=== PATIENT | female | born 1940 | race Caucasian/White ===

== ENCOUNTER 2021-02-28 10:29 | Inpatient (IN) ==
[2021-02-28] MEDS ORDERED: dexAMETHasone 6 MG in SYRINGE 0 ML IV ONE (11:04)
--- NOTE | 2021-02-28 11:12 | Emergency Department Note ---
History of Present Illness General Chief complaint: Diarrhea Stated complaint: DIARRHEA,NAUSEA Time Seen by Provider: 02/28/21 10:58 History of Present Illness Provider complaint: Diarrhea cough weakness shortness of breath fever Onset (ago): week(s) 1 Maximum Pain Intensity: 5 Associated symptoms: + cough, + fever/chills, + malaise, + nausea/vomiting, + shortness of breath and + weakness 80-year-old female presents emergency department for diarrhea, cough,, weakness, cough shortness of breath, fever, for the last week. Patient states that she had family over from [place] on and after they left they tested positive for COVID-19. Patient states her symptoms began 1 week ago. Patient denies any hemoptysis. She does not smoke. No exogenous hormone usage. Patient states she was not vaccinated against COVID-19. Home Medications Medication Instructions Recorded Confirmed Type Tonic Water 1 dose PO UD 04/19/19 05/13/19 History magnesium 250 mg tablet 500 mg PO DAILY 04/19/19 05/13/19 History Allergies Allergy/AdvReac Type Severity Reaction Status Date / Time morphine AdvReac Unknown N/V Verified 04/19/19 11:14 Past Med/Surg History Medical History (Updated 02/28/21 @ 13:07 by Conor Guardado) History of fracture back, hip d/t trauma s/p left hip surgery, back surgery was managed conserva tively with brace/no surgical intervention (2001) Sciatica Surgical History History of colonoscopy History of hip surgery left Social History Smoking Status: Never smoker Hx Alcohol Use: No Hx Substance Use: No Preferred Language: Kuwaiti Communication Ability: Effective Retail Clerk Required: No Beliefs That Will Affect Care: None Current Living Situation: Alone Feels Safe at Home: Yes Assistive Devices: Denture - Lower and Wheelchair Review of Systems A total of 10 systems reviewed and were otherwise negative Physical Exam Vital Signs Vital Signs - 24 hr 02/28/21 10:44 02/28/21 10:59 02/28/21 11:29 Temperature 37.6 C H Temperature Source Temporal Artery Scan Pulse Rate 85 88 Pulse Rate from SpO2 Sensor Pulse Rhythm Regular Respiratory Rate 18 20 20 Respiratory Effort / Characteristics Non-Labored Non-Labored Blood Pressure 101/62 Blood Pressure Mean 75 Blood Pressure Position Sitting Pulse Oximetry 88 L 96 98 Oxygen Delivery Method Room Air Nasal Cannula Nasal Cannula Oxygen Flow Rate 2 Sepsis Recent Fever Within 48 Hours No Sepsis New/Unexplained Change in Mental Status N/A Sepsis Action Taken by Nursing No Action Required 02/28/21 11:32 02/28/21 11:40 02/28/21 11:50 Temperature Temperature Source Pulse Rate 74 77 76 Pulse Rate from SpO2 Sensor 75 77 78 Pulse Rhythm Respiratory Rate 21 16 19 Respiratory Effort / Characteristics Blood Pressure 132/65 Blood Pressure Mean 87 Blood Pressure Position Pulse Oximetry 96 98 97 Oxygen Delivery Method Nasal Cannula Oxygen Flow Rate 2 Sepsis Recent Fever Within 48 Hours Sepsis New/Unexplained Change in Mental Status Sepsis Action Taken by Nursing 02/28/21 11:59 02/28/21 12:00 02/28/21 12:10 Temperature Temperature Source Pulse Rate 78 74 Pulse Rate from SpO2 Sensor 78 74 Pulse Rhythm Respiratory Rate 20 25 H 15 Respiratory Effort / Characteristics Non-Labored Non-Labored Blood Pressure Blood Pressure Mean Blood Pressure Position Pulse Oximetry 96 97 97 Oxygen Delivery Method Nasal Cannula Nasal Cannula Nasal Cannula Oxygen Flow Rate 2 2 2 Sepsis Recent Fever Within 48 Hours Sepsis New/Unexplained Change in Mental Status Sepsis Action Taken by Nursing 02/28/21 12:28 02/28/21 12:30 02/28/21 12:40 Temperature Temperature Source Pulse Rate Pulse Rate from SpO2 Sensor 83 79 73 Pulse Rhythm Respiratory Rate 20 Respiratory Effort / Characteristics Non-Labored Blood Pressure 151/73 H Blood Pressure Mean 99 Blood Pressure Position Pulse Oximetry 93 95 97 Oxygen Delivery Method Nasal Cannula Nasal Cannula Nasal Cannula Oxygen Flow Rate 2 2 2 Sepsis Recent Fever Within 48 Hours Sepsis New/Unexplained Change in Mental Status Sepsis Action Taken by Nursing 02/28/21 12:50 02/28/21 13:00 Temperature Temperature Source Pulse Rate Pulse Rate from SpO2 Sensor 76 75 Pulse Rhythm Respiratory Rate 20 Respiratory Effort / Characteristics Non-Labored Blood Pressure 151/72 H Blood Pressure Mean 98 Blood Pressure Position Pulse Oximetry 94 97 Oxygen Delivery Method Nasal Cannula Oxygen Flow Rate 2 Sepsis Recent Fever Within 48 Hours Sepsis New/Unexplained Change in Mental Status Sepsis Action Taken by Nursing Physical Exam GENERAL: She is oriented to person, place, and time. She appears well-developed and well-nourished. She does not appear distressed. HENT: Exam performed. -Head: Normocephalic and atraumatic. -Right Ear: External ear normal. No mastoid tenderness. -Left Ear: External ear normal. No mastoid tenderness. -Mouth/Throat: The oropharynx is clear and moist. No trismus in the jaw. No dental abscesses or uvula swelling. No oropharyngeal exudate or tonsillar abscesses. EYES: Conjunctivae and EOM are normal. Pupils are equal, round, and reactive to light. Right eye exhibits no discharge. Left eye exhibits no discharge. No scleral icterus. NECK: Normal range of motion. Neck supple. No JVD present. No spinous process tenderness present. No carotid bruit present. No rigidity. No tracheal deviation and normal range of motion present. No Brudzinski's sign and no Kernig's sign noted. CV: Normal rate, regular rhythm, normal heart sounds and intact distal pulses. There is no peripheral edema. Palpable radial pulses bue. PULM/CHEST: Diminished breath sounds bilaterally and rhonchi bilaterally. -Chest Wall: She exhibits no tenderness. ABD: The abdomen is soft. Bowel sounds are normal. She has no distension. No mass is present. There is no tenderness. There is no rebound, no guarding, no Pavon's sign and no tenderness at McBurney's point. Rovsig negative MUSC/SKEL: Normal range of motion. There is no peripheral edema, tenderness or deformity. LYMPH: No cervical adenopathy. NEURO: She is alert and oriented to person, place, and time. She has normal strength. No cranial nerve deficit or sensory deficit. Coordination and gait normal. GCS eye subscore is 4. GCS verbal subscore is 5. GCS motor subscore is 6. Cerebellar tests wnl. SKIN: Skin is warm and dry. She is not diaphoretic. PSYCH: She has a normal mood and affect. Behavior is normal. Judgment and thought content normal. Course Course 1058: The patient was evaluated in room B11. A complete history and physical exam was performed Cardiac monitoring: An order was placed for continuous cardiac monitoring. The monitor shows a rate of 90 with sinus rhythm 1305: Vital signs stable on supplemental oxygen via nasal cannula. Imaging shows bilateral groundglass opacities, no pulmonary embolus. Labs within normal limits. Patient did test positive for Covid pneumonia. Patient given Decadron 6 mg IV push. [facility]. Administered Medications Sodium Chloride (Nss 1000ml) 1,000 mls @ 125 mls/hr IV .Q8H KEITH Stop: 03/30/21 11:14 Last Admin: 02/28/21 11:37 Dose: 125 mls/hr Documented by: [id number] Discontinued Medications Dexamethasone 6 mg/ Syringe 1.5 mls @ 1 mls/min IV ONE ONE Stop: 02/28/21 11:05 Last Admin: 02/28/21 12:07 Dose: 1 mls/min Documented by: [id number] Ioversol (Optiray 320 125ml) 120 ml IV ONCE ONE Stop: 02/28/21 12:21 Last Admin: 02/28/21 12:24 Dose: 120 ml Documented by: [id number] Critical Care Time Critical Care Time: Yes Total Critical Care Time: 45 I have personally spent greater than 45 minutes of critical care time in the direct management of this patient. This includes bedside care, interpretation of diagnostic studies, and testing, discussion with consultants, patient, and family members, and other required patient management activities. This 45 minutes is in excess of all separately billable procedures. Medical Decision Making Laboratory Data Result diagrams: 02/28/21 11:28 02/28/21 11:28 Lab Results 02/28/21 02/28/21 02/28/21 Range/Units 11:28 11:28 11:28 WBC 9.20 (4.8-10.8) K/uL RBC 3.84 L (4.2-5.4) M/uL Hgb 11.7 L (12.0-16.0) g/dL Hct 35.7 L (37-47) % MCV 93.0 (80-100) fL MCH 30.5 (25-34) pg MCHC 32.8 (32-36) g/dL RDW Std Deviation 47.1 H (36.4-46.3) fL RDW Coeff of Brittaney 13.7 (11.5-14.5) % Plt Count 296 (130-400) K/uL MPV 10.5 H (7.4-10.4) fL Immature Gran % (Auto) 0.4 % Neut % (Auto) 76.0 % Lymph % (Auto) 16.4 % [place] % (Auto) 7.1 % Eos % (Auto) 0.0 % Baso % (Auto) 0.1 % Neut # (Auto) 6.99 H (1.4-6.5) K/uL Lymph # (Auto) 1.51 (1.2-3.4) K/uL [place] # (Auto) 0.65 H (0.11-0.59) K/uL Eos # (Auto) 0.00 (0-0.5) K/uL Baso # (Auto) 0.01 (0-0.2) K/uL Immature Gran # (Auto) 0.04 H (0.00-0.02) K/uL PT 10.3 (9.0-12.0) Seconds INR 1.0 (0.9-1.1) APTT 33.1 H (21.0-31.0) Seconds PTT Ratio 1.3 VBG pH (7.36-7.41) VBG pCO2 (38-50) mmHg VBG pO2 mmHg VBG HCO3 mmol/L VBG O2 Saturation % VBG Base Excess mEq/L Barometric Pressure mm/Hg Sodium 131 L (136-145) mmol/L Potassium 3.7 (3.5-5.1) mmol/L Chloride 99 (98-107) mmol/L Carbon Dioxide 23 (21-32) mmol/L Anion Gap 9.0 (3-11) BUN 18 (7-18) mg/dl Creatinine 1.04 (0.6-1.2) mg/dl Est Cr Clr Drug Dosing 36.7 ml/min Est GFR ( Amer) 57.9 ml/min Est GFR (Non-Af Amer) 50.0 ml/min BUN/Creatinine Ratio 17.1 (10-20) Glucose 100 H (70-99) mg/dl Lactate (0.4-2.0) mmol/L Calcium 8.3 L (8.5-10.1) mg/dl Total Bilirubin 0.7 (0.2-1) mg/dl AST 60 H (15-37) U/L ALT 35 (12-78) Alkaline Phosphatase 63 (45-117) U/L Troponin I 0.027 (0-0.045) ng/ml Total Protein 7.1 (6.4-8.2) gm/dl Albumin 2.6 L (3.4-5.0) gm/dl Globulin 4.5 H (2.5-4.0) gm/dl Albumin/Globulin Ratio 0.6 L (0.9-2) Procalcitonin (0-0.5) ng/ml SARS-CoV-2 (PCR) (Negative) Influenza Type A (PCR) (Neg) Influenza Type B (PCR) (Neg) RSV (RT-PCR) (Neg) 02/28/21 02/28/21 02/28/21 Range/Units 11:28 11:28 11:28 WBC (4.8-10.8) K/uL RBC (4.2-5.4) M/uL Hgb (12.0-16.0) g/dL Hct (37-47) % MCV (80-100) fL MCH (25-34) pg MCHC (32-36) g/dL RDW Std Deviation (36.4-46.3) fL RDW Coeff of Brittaney (11.5-14.5) % Plt Count (130-400) K/uL MPV (7.4-10.4) fL Immature Gran % (Auto) % Neut % (Auto) % Lymph % (Auto) % [place] % (Auto) % Eos % (Auto) % Baso % (Auto) % Neut # (Auto) (1.4-6.5) K/uL Lymph # (Auto) (1.2-3.4) K/uL [place] # (Auto) (0.11-0.59) K/uL Eos # (Auto) (0-0.5) K/uL Baso # (Auto) (0-0.2) K/uL Immature Gran # (Auto) (0.00-0.02) K/uL PT (9.0-12.0) Seconds INR (0.9-1.1) APTT (21.0-31.0) Seconds PTT Ratio VBG pH 7.39 (7.36-7.41) VBG pCO2 37 L (38-50) mmHg VBG pO2 29 mmHg VBG HCO3 22 mmol/L VBG O2 Saturation < 60.0 % VBG Base Excess -2.6 mEq/L Barometric Pressure 734.9 mm/Hg Sodium (136-145) mmol/L Potassium (3.5-5.1) mmol/L Chloride (98-107) mmol/L Carbon Dioxide (21-32) mmol/L Anion Gap (3-11) BUN (7-18) mg/dl Creatinine (0.6-1.2) mg/dl Est Cr Clr Drug Dosing ml/min Est GFR ( Amer) ml/min Est GFR (Non-Af Amer) ml/min BUN/Creatinine Ratio (10-20) Glucose (70-99) mg/dl Lactate 1.6 (0.4-2.0) mmol/L Calcium (8.5-10.1) mg/dl Total Bilirubin (0.2-1) mg/dl AST (15-37) U/L ALT (12-78) Alkaline Phosphatase (45-117) U/L Troponin I (0-0.045) ng/ml Total Protein (6.4-8.2) gm/dl Albumin (3.4-5.0) gm/dl Globulin (2.5-4.0) gm/dl Albumin/Globulin Ratio (0.9-2) Procalcitonin 0.27 (0-0.5) ng/ml SARS-CoV-2 (PCR) (Negative) Influenza Type A (PCR) (Neg) Influenza Type B (PCR) (Neg) RSV (RT-PCR) (Neg) 02/28/21 Range/Units Unknown WBC (4.8-10.8) K/uL RBC (4.2-5.4) M/uL Hgb (12.0-16.0) g/dL Hct (37-47) % MCV (80-100) fL MCH (25-34) pg MCHC (32-36) g/dL RDW Std Deviation (36.4-46.3) fL RDW Coeff of Brittaney (11.5-14.5) % Plt Count (130-400) K/uL MPV (7.4-10.4) fL Immature Gran % (Auto) % Neut % (Auto) % Lymph % (Auto) % [place] % (Auto) % Eos % (Auto) % Baso % (Auto) % Neut # (Auto) (1.4-6.5) K/uL Lymph # (Auto) (1.2-3.4) K/uL [place] # (Auto) (0.11-0.59) K/uL Eos # (Auto) (0-0.5) K/uL Baso # (Auto) (0-0.2) K/uL Immature Gran # (Auto) (0.00-0.02) K/uL PT (9.0-12.0) Seconds INR (0.9-1.1) APTT (21.0-31.0) Seconds PTT Ratio VBG pH (7.36-7.41) VBG pCO2 (38-50) mmHg VBG pO2 mmHg VBG HCO3 mmol/L VBG O2 Saturation % VBG Base Excess mEq/L Barometric Pressure mm/Hg Sodium (136-145) mmol/L Potassium (3.5-5.1) mmol/L Chloride (98-107) mmol/L Carbon Dioxide (21-32) mmol/L Anion Gap (3-11) BUN (7-18) mg/dl Creatinine (0.6-1.2) mg/dl Est Cr Clr Drug Dosing ml/min Est GFR ( Amer) ml/min Est GFR (Non-Af Amer) ml/min BUN/Creatinine Ratio (10-20) Glucose (70-99) mg/dl Lactate (0.4-2.0) mmol/L Calcium (8.5-10.1) mg/dl Total Bilirubin (0.2-1) mg/dl AST (15-37) U/L ALT (12-78) Alkaline Phosphatase (45-117) U/L Troponin I (0-0.045) ng/ml Total Protein (6.4-8.2) gm/dl Albumin (3.4-5.0) gm/dl Globulin (2.5-4.0) gm/dl Albumin/Globulin Ratio (0.9-2) Procalcitonin (0-0.5) ng/ml SARS-CoV-2 (PCR) POSITIVE A* (Negative) Influenza Type A (PCR) Negative (Neg) Influenza Type B (PCR) Negative (Neg) RSV (RT-PCR) Negative (Neg) Imaging Data Radiologist's Impression: Chest X-Ray 02/28/21 10:59 XR chest 1V portable CLINICAL HISTORY: SEPSIS TECHNIQUE: Single frontal radiograph of the chest was obtained. Comparison: Comparison is made to chest 2 views 04/29/2019 FINDINGS: No lines and tubes are seen. The cardiomediastinal silhouette is normal. Bilateral lower lung predominant airspace opacities are seen. No evidence of pleural effusion or pneumothorax. IMPRESSION: Bilateral lower lung predominant airspace opacities are seen, right greater than left, which may represent atelectasis, pneumonia, and/or aspiration. ACT 112: Negative or not required by law. Electronically signed by: Puma Rodríguez M.D. 02/28/2021 11:15 AM Chest CTA 02/28/21 11:04 CT angio chest PE protocol CLINICAL HISTORY: ro pe TECHNIQUE: Multidetector row helical CT of the chest was performed. Coronal and sagittal reformations were obtained. Automated dose lowering techniques and/or adjustment according to patient size were utilized for this exam. Comparison: Comparison is made to chest one view 02/28/2021 FINDINGS: Lungs and pleura: Groundglass opacities are seen most prominently in the left upper lobe and right lower lobe. Heart and pericardium: Heart size is normal. No pericardial effusion. Vessels: No evidence of pulmonary embolism. Mediastinum and anatoly: Enlarged nodes are seen measuring 12 mm in diameter. Chest wall and lower neck: Unremarkable. Abdomen: Cysts are seen in the right kidney in the spleen. Bones: Degenerative changes in the thoracic spine. Loss of height of T8 is noted. IMPRESSION: Multifocal groundglass opacities compatible with pneumonia. No evidence of pulmonary embolism. ACT 112: Negative or not required by law. Electronically signed by: Puma Rodríguez M.D. 02/28/2021 12:45 PM ECG Data Indication: + SOB/dyspnea Rate (beats per minute): 74 Rhythm: + normal sinus ECG Intervals/blocks: + Normal QRS, + Normal NC and + Normal QT-c ECG ST segments: + Normal ST segments MDM Narrative Vital signs stable on supplemental oxygen via nasal cannula. Imaging shows bilateral groundglass opacities, no pulmonary embolus. Labs within normal limits. Patient did test positive for Covid pneumonia. Patient given Decadron 6 mg IV push. [facility] [place] Impression & Plan Hypoxia, Pneumonia due to 2019 novel coronavirus Discharge Plan Visit Data Chief Complaint: Diarrhea Stated Complaint: DIARRHEA,NAUSEA ED Provider: Conor Guardado Discharge Problem: Hypoxia, Pneumonia due to 2019 novel coronavirus Patient Disposition: Admitted As Inpatient Forms Stand Alone Forms: [facility] Prescriptions Prescriptions: No Action magnesium 250 mg Tablet 500 mg PO DAILY RF: 0 Tonic Water 1 dose PO UD RF: 0 Referrals Referrals: Kavon Aguirre MD [Primary Care Provider] -
[2021-02-28] MEDS ORDERED: SODIUM CHLORIDE 0.9% 1000ML 1,000 ML IV SCH (11:15)
--- NOTE | 2021-02-28 11:17 | XRay Report ---
XR chest 1V portable CLINICAL HISTORY: SEPSIS TECHNIQUE: Single frontal radiograph of the chest was obtained. Comparison: Comparison is made to chest 2 views 04/29/2019 FINDINGS: No lines and tubes are seen. The cardiomediastinal silhouette is normal. Bilateral lower lung predomi nant airspace opacities are seen. No evidence of pleural effusion or pneumothorax. IMPRESSION: Bilateral lower lung predominant airspace opacities are seen, right greater than left, which may repr esent atelectasis, pneumonia, and/or aspiration. ACT 112: Negative or not required by law. Electronically signed by: Puma Rodríguez M.D. 02/28/2021 11:15 AM
[2021-02-28 11:44] LABS: Hematocrit (blood only) 35.7 % (37-47); Hemoglobin 11.7 g/dL (12.0-16.0); Mean Corpuscular Hemoglobin 30.5 pg (25-34); Mean Corpuscular Hgb Conc 32.8 g/dL (32-36); Mean Platelet Volume 10.5 fL (7.4-10.4); Platelet Count 296 K/uL (130-400); RDW Coefficient of Variation 13.7 % (11.5-14.5); RDW Standard Deviation 47.1 fL (36.4-46.3); Red Blood Count 3.84 M/uL (4.2-5.4)
[2021-02-28 11:45] LABS: Base Excess VBG -2.6 mEq/L; HCO3 VBG 22 mmol/L; PCO2 VBG 37 mmHg (38-50); PO2 VBG 29 mmHg; pH VBG 7.39 (7.36-7.41)
[2021-02-28 11:46] LABS: Oxygen Saturation VBG < 60.0 %
[2021-02-28 11:55] LABS: Partial Thromboplastin Ratio 1.3; Partial Thromboplastin Time 33.1 Seconds (21.0-31.0); Prothrombin Time 10.3 Seconds (9.0-12.0)
[2021-02-28 11:58] LABS: Basophils # (auto) 0.01 K/uL (0-0.2); Basophils % (auto) 0.1 %; Immature Granulocytes # (auto) 0.04 K/uL (0.00-0.02); Immature Granulocytes % (auto) 0.4 %; Lymphocytes # (auto) 1.51 K/uL (1.2-3.4); Lymphocytes % (auto) 16.4 %; Monocytes # (auto) 0.65 K/uL (0.11-0.59); Monocytes % (auto) 7.1 %; Neutrophils # (auto) 6.99 K/uL (1.4-6.5)
[2021-02-28 12:01] LABS: Albumin Level 2.6 gm/dl (3.4-5.0); BUN Creatinine Ratio 17.1 (10-20); Calcium 8.3 mg/dl (8.5-10.1); Creatinine Clr Calc Pharmacy 36.7 ml/min; Est GFR (African American) 57.9 ml/min; Potassium 3.7 mmol/L (3.5-5.1)
[2021-02-28 12:06] LABS: Albumin Globulin Ratio 0.6 (0.9-2); Bilirubin,Total 0.7 mg/dl (0.2-1); Globulin 4.5 gm/dl (2.5-4.0); Total Protein 7.1 gm/dl (6.4-8.2); Troponin I 0.027 ng/ml (0-0.045)
[2021-02-28] MEDS ORDERED: OPTIRAY 320 125ml IV ONE (12:20)
[2021-02-28 12:35] LABS: Influenza A virus by PCR Negative (Neg); Influenza B virus by PCR Negative (Neg); RSV by PCR Negative (Neg)
--- NOTE | 2021-02-28 12:47 | CT Scan Report ---
CT angio chest PE protocol CLINICAL HISTORY: ro pe TECHNIQUE: Multidetector row helical CT of the chest was performed. Coronal and sagittal reformations were obtained. Automated dose lowering techniques and/or adjustment according to patient size were u tilized for this exam. Comparison: Comparison is made to chest one view 02/28/2021 FINDINGS: Lungs and pleura: Groundglass opacities are seen most prominently in the left upper lobe and right lo wer lobe. Heart and pericardium: Heart size is normal. No pericardial effusion. Vessels: No evidence of pulmonary embolism. Mediastinum and anatoly: Enlarged nodes are seen measuring 12 mm in diameter. Chest wall and lower neck: Unremarkable. Abdomen: Cysts are seen in the right kidney in the spleen. Bones: Degenerative changes in the thoracic spine. Loss of height of T8 is noted. IMPRESSION: Multifocal groundglass opacities compatible with pneumonia. No evidence of pulmonary embolism. ACT 112: Negative or not required by law. Electronically signed by: Puma Rodríguez M.D. 02/28/2021 12:45 PM
[2021-02-28 12:54] LABS: SARS CoV2 RNA(COVID-19) InHosp POSITIVE (Negative)
--- NOTE | 2021-02-28 13:21 | History & Physical Report ---
Date of Service February 28, 2021 Assessment & Plan (1) Hypoxia: (2) Pneumonia due to 2019 novel coronavirus: Plan: This is an 80yo F with no known medical problems who presents with cough, SOB and generalized weakness x 1 week and was found to have Covid pneumonia. Symptomatic x 1 week. Covid PCR test positive today, 02/28/21 Hypoxic at 88% on room air, 96% on 2L NC, T: 37.6 C No leukocytosis, lactate and procalcitonin wnl Chest CTA with multifocal groundglass opacities compatible with pneumonia. No evidence of pulmonary embolism Started on IV Dexamethasone in ED. Continue 6mg IV daily. Also starting Remdesivir Continue supplemental O2, isolation precautions, monitor lab work daily Starting on clear liquids due to nausea, advance as tolerated DVT Ppx: SQ Lovenox Code status: DNR PCP: Timothy ([place]) Dispo: Admitted to PCU Patient seen in collaboration with Dr. Lorenz. Please see addendum. History of Present Illness Chief Complaint: SOB, diarrhea Primary Care Provider: Kavon Aguirre MD This is an 80yo F with no known medical problems who presents with cough, SOB and generalized weakness x 1 week. Had family in from [place] over who tested positive for covid-19 after leaving. Patient developed symptoms approximately 1 week ago and has felt progressively worse. Endorses nausea, diarrhea, generalized weakness, fatigue, chills, cough and SOB. Diarrhea has improved over past few days but cough and SOB have worsened, prompting her to present to ED. Does not own thermometer so unsure if she has been having a fever at home. Lives alone and receives primary care from Dr. Aguirre in [place]. Patient was not vaccinated against COVID-19. Denies any known PMH of diabetes, heart disease or stroke. Only home medications are vitamin D and magnesium. Still does not have much of an appetite. Denies headache, lightheadedness, CP, palpitations, wheezing, hemoptysis, nausea, abdominal pain, dysuria or constipation. Allergies Allergy/AdvReac Type Severity Reaction Status Date / Time morphine AdvReac Unknown N/V Verified 02/28/21 13:18 Home Medications Medication Instructions Recorded Confirmed Type ergocalciferol (vitamin D2) 1,250 1,250 mcg PO DAILY 02/28/21 02/28/21 History mcg (50,000 unit) capsule (Vitamin D2) magnesium 30 mg tablet 30 mg PO DAILY 02/28/21 02/28/21 History Past Med/Surg History Medical History Sciatica Surgical History History of colonoscopy History of hip surgery bilateral Family History Other Heart disease Social History Smoking Status: Never smoker Hx Alcohol Use: No Hx Substance Use: No Preferred Language: Lithuanian Communication Ability: Effective Wellness Program Manager Required: No Beliefs That Will Affect Care: None Current Living Situation: Alone Feels Safe at Home: Yes Assistive Devices: Denture - Lower and Wheelchair Review of Systems Review of Systems: At least ten systems reviewed and negative except as noted in the HPI. Physical Exam Physical Exam: Please see Dr. Lorenz's addendum for physical exam. Results & Data Results & Data ([facility]) Vital Signs (Past 12 Hours) Vital Signs Temp Pulse Resp BP Pulse Ox 02/28/21 13:00 20 151/72 H 97 02/28/21 12:50 94 02/28/21 12:40 97 02/28/21 12:30 20 151/73 H 95 02/28/21 12:28 93 02/28/21 12:10 74 15 97 02/28/21 12:00 78 25 H 97 02/28/21 11:59 20 96 02/28/21 11:50 76 19 97 02/28/21 11:40 77 16 98 02/28/21 11:32 74 21 132/65 96 02/28/21 11:29 20 98 02/28/21 10:59 88 20 96 02/28/21 10:44 37.6 C H 85 18 101/62 88 L Laboratory Results Short CBC 02/28/21 Range/Units 11:28 WBC 9.20 (4.8-10.8) K/uL Hgb 11.7 L (12.0-16.0) g/dL Hct 35.7 L (37-47) % Plt Count 296 (130-400) K/uL BMP 02/28/21 11:28 Sodium 131 L Potassium 3.7 Chloride 99 Carbon Dioxide 23 BUN 18 Creatinine 1.04 Glucose 100 H Calcium 8.3 L Cardiac Enzymes 02/28/21 Range/Units 11:28 Troponin I 0.027 (0-0.045) ng/ml Liver Function 02/28/21 Range/Units 11:28 Total Bilirubin 0.7 (0.2-1) mg/dl AST 60 H (15-37) U/L ALT 35 (12-78) Alkaline Phosphatase 63 (45-117) U/L Albumin 2.6 L (3.4-5.0) gm/dl Urine 02/28/21 Range/Units Unknown Urine Color Dark Yellow Urine Appearance Clear (Clear) Urine pH 6.0 (4.5-7.5) Ur Specific [place] 1.034 H (1.000-1.030) Urine Protein 2+ H (Negative) Urine Glucose (UA) Negative (Negative) Diagnostic Findings Chest X-Ray 02/28/21 10:59 XR chest 1V portable CLINICAL HISTORY: SEPSIS TECHNIQUE: Single frontal radiograph of the chest was obtained. Comparison: Comparison is made to chest 2 views 04/29/2019 FINDINGS: No lines and tubes are seen. The cardiomediastinal silhouette is normal. Bilateral lower lung predominant airspace opacities are seen. No evidence of pleural effusion or pneumothorax. IMPRESSION: Bilateral lower lung predominant airspace opacities are seen, right greater than left, which may represent atelectasis, pneumonia, and/or aspiration. ACT 112: Negative or not required by law. Electronically signed by: Puma Rodríguez M.D. 02/28/2021 11:15 AM Chest CTA 02/28/21 11:04 CT angio chest PE protocol CLINICAL HISTORY: ro pe TECHNIQUE: Multidetector row helical CT of the chest was performed. Coronal and sagittal reformations were obtained. Automated dose lowering techniques and/or adjustment according to patient size were utilized for this exam. Comparison: Comparison is made to chest one view 02/28/2021 FINDINGS: Lungs and pleura: Groundglass opacities are seen most prominently in the left upper lobe and right lower lobe. Heart and pericardium: Heart size is normal. No pericardial effusion. Vessels: No evidence of pulmonary embolism. Mediastinum and anatoly: Enlarged nodes are seen measuring 12 mm in diameter. Chest wall and lower neck: Unremarkable. Abdomen: Cysts are seen in the right kidney in the spleen. Bones: Degenerative changes in the thoracic spine. Loss of height of T8 is noted. IMPRESSION: Multifocal groundglass opacities compatible with pneumonia. No evidence of pulmonary embolism. ACT 112: Negative or not required by law. Electronically signed by: Puam Rodríguez M.D. 02/28/2021 12:45 PM Supervising Physician Co-Signing Physician Notes History and physical exam performed by ri History notable for worsening cough/SOB for the past 7 days associated with weakness, anorexia On physical exam, General: Elderly woman in no distress Eyes: PERRL, conjunctivae normal, not pale, anicteric sclerae, EOM intact bilaterally ENMT: External ear and nose normal, oropharynx normal Respiratory: Normal respiratory effort, no respiratory distress, on nasal cannula, scattered rales Cardiovascular: Pulse is RRR. S1 S2 no pedal edema Gastrointestinal (Abdomen): Abdomen is not distended, soft, non-tender to pal pation, no guarding, no palpable hepatosplenomegaly, normal bowel sounds Musculoskeletal: No cyanosis or clubbing, all extremities motor strength 5/5 Neurologic: Alert and oriented x 3, No focal weakness, sensation grossly intact Psychiatric: Alert and oriented x 3, euthymic affect, no depressed affect Labs notable for hemoglobin of 11.7, sodium of 131, positive Covid test CT PE did not show any PE but showed multifocal groundglass opacities Acute hypoxic respiratory failure due to COVID-19 pneumonia Continue dexamethasone Discussed other treatment options with patient including antiviral remdesivir. Patient agreeable to this. Remdesivir started Monitor LFTs and renal function Educated on self proning Incentive spirometry and flutter Agree with other plans as detailed by Annabelle Saez PA-C
[2021-02-28 13:45] LABS: Appearance Urine Clear (Clear); Bacteria Urine Automated Negative (Negative); Bilirubin Urine Negative (Negative); Blood Urine Negative (Negative); Color Urine Dark Yellow; Epithelial Cell Urine Auto >30 /lpf (0-5); Glucose Urine UA Negative (Negative); Ketones Urine 1+ (Negative); Leukocyte Esterase Urine Negative (Negative); Nitrite Urine Negative (Negative); Protein Urine 2+ (Negative); RBC Urine Automated 0-4 /hpf (0-4); Specific Gravity Urine 1.034 (1.000-1.030); Urobilinogen Urine Negative (Negative)
[2021-02-28] MEDS ORDERED: REMDESIVIR 200 MG in SODIUM CHLORIDE 0.9% 210 ML IV ONE (14:30)
[2021-02-28] MEDS ORDERED: SODIUM CHLORIDE 0.9% 10ML FLUSH IV SCH (16:30)
[2021-02-28] MEDS ORDERED: POLYETHYLENE (MIRALAX) 17 GM PACK PO PRN (16:31)
[2021-02-28] MEDS ORDERED: ACETAMINOPHEN 325 MG TAB PO PRN (16:31)
[2021-02-28] MEDS: ENOXAPARIN INJ 40 MG/0.4 ML SYR SQ SCH (17:38)
--- NOTE | 2021-02-28 22:11 | Electrocardiogram Report ---
Test Reason : Blood Pressure : / mmHG Vent. Rate : 074 BPM Atrial Rate : 074 BPM P-R Int : 176 ms QRS Dur : 100 ms QT Int : 418 ms P-R-T Axes : 097 024 043 degrees QTc Int : 463 ms Normal sinus rhythm Poor R wave progression, consider anterior NV vs. lead placement vs. LVH When compared with ECG of 29-APR-2019 14:03, Nonspecific T wave abnormality no longer evident in Lateral leads Confirmed by Gabino Varela ([id number]) on 02/28/2021 10:10:42 PM Referred By: REFERRED SELF Confirmed By:Gabino Varela
[2021-03-01 05:27] LABS: Hematocrit (blood only) 37.1 % (37-47); Hemoglobin 12.3 g/dL (12.0-16.0); Mean Corpuscular Hemoglobin 30.4 pg (25-34); Mean Corpuscular Hgb Conc 33.2 g/dL (32-36); Mean Corpuscular Volume 91.6 fL (80-100); Mean Platelet Volume 10.5 fL (7.4-10.4); Platelet Count 315 K/uL (130-400); RDW Coefficient of Variation 13.6 % (11.5-14.5); RDW Standard Deviation 45.9 fL (36.4-46.3); Red Blood Count 4.05 M/uL (4.2-5.4); White Blood Count 7.48 K/uL (4.8-10.8)
[2021-03-01 06:10] LABS: Albumin Globulin Ratio 0.5 (0.9-2); Albumin Level 2.4 gm/dl (3.4-5.0); BUN Creatinine Ratio 23.5 (10-20); Bilirubin,Total 0.4 mg/dl (0.2-1); Calcium 8.7 mg/dl (8.5-10.1); Creatinine Clr Calc Pharmacy 44.9 ml/min; Est GFR (Non-African American) 63.8 ml/min; Globulin 4.4 gm/dl (2.5-4.0); Potassium 4.3 mmol/L (3.5-5.1); Total Protein 6.8 gm/dl (6.4-8.2)
[2021-03-01] MEDS ORDERED: NON-FORMULARY MEDICATION (Magnesium 30 mg Tablet) PO SCH (09:00)
[2021-03-01] MEDS: dexAMETHasone 6 MG in SYRINGE 0 ML IV SCH (09:47)
[2021-03-01] MEDS: ERGOCALCIFEROL 50,000 UNITS 1250 MCG CAP PO SCH (09:47)
[2021-03-01] MEDS ORDERED: LIDOCAINE/EPINEPH/TETRACAINE 1 EA SYR EXT ONE (12:45)
[2021-03-01] MEDS: REMDESIVIR 100 MG in SODIUM CHLORIDE 0.9% 230 ML IV SCH (13:00)
[2021-03-01] MEDS: ONDANSETRON INJ 2 MG/ML 2 ML VIAL IV PRN (13:00)
[2021-03-01] MEDS: SODIUM CHLORIDE 0.9% 10ML FLUSH IV SCH (15:01)
[2021-03-01] MEDS: ENOXAPARIN INJ 40 MG/0.4 ML SYR SQ SCH (18:54)
--- NOTE | 2021-03-01 19:45 | Hospitalist Progress Note ---
Date of Service March 01, 2021 Assessment & Plan (1) Pneumonia due to 2019 novel coronavirus: Plan: This is an 80yo F with no known medical problems who presents with cough, SOB and generalized weakness x 1 week and was found to have Covid pneumonia. hypoxia persists, currently 91% on 3LPM via NC No leukocytosis, lactate and procalcitonin wnl Chest CTA with multifocal groundglass opacities compatible with pneumonia. No evidence of pulmonary embolism cont remdesivir and dexamethasone. cont supplemental care (2) Hypoxia: Plan: 2/2 above. (3) DVT prophylaxis: Plan: Lovenox DNR confirmed Dispo-cont hospitalization pending resolution of hypoxia Faiza Marte DO [facility] Hospitalist Admission and Anticipated Discharge Date Admission Date: February 28, 2021 Subjective 80 yo F with covid pneumonia symptoms still present, ongoing for the past week coughing in spurts, declines cough syrup or antitussives at this time +nauseous but denies medications, no vomiting was able to tolerate food today-notes 3 meals eaten reports her diarrhea is improving. Reports her breathing is a little better. Review of Systems Review of Systems: All systems reviewed and negative except as indicated above. Physical Exam Physical Exam: CONSTITUTIONAL: WNWD, vitals as above, generally ill- appearing, NAD EYES: normal conjunctivae, no scleral icterus ENT: external ear and nose normal, MMM NECK: trachea midline, no lymphadenopathy, normal thyroid RESPIRATORY: bilateral bases have crackles, but moving air well, no rales or wheezes, normal respiratory effort CARDIOVASCULAR: regular rate and rhythm, S1 and 2 heard without murmurs, gallops or rubs, no JVD, no peripheral edema GASTROINTESTINAL: normal bowel sounds, soft, nontender, ND, no guarding MUSCULOSKELETAL: strength 5/5 throughout, head is normocephalic and atraumatic SKIN: warm and dry NEUROLOGIC: CN 2-12 grossly intact, normal cognition, normal speech, no tremor, no gross focal deficits. PSYCHIATRIC: alert cooperative and oriented to person, place and time. Euthymic mood, makes good eye contact, language grossly intact, recent and remote memory grossly intact. Results & Data Results & Data ([facility]) Vital Signs (Past 12 Hours) Vital Signs Temp Pulse Pulse Resp BP BP Pulse Ox 03/01/21 18:00 78 10 L 91 03/01/21 17:00 03/01/21 16:00 67 17 95 03/01/21 14:33 21 98 03/01/21 14:00 67 19 94 03/01/21 12:14 37.2 C 67 17 140/67 95 03/01/21 12:00 64 17 140/67 96 03/01/21 10:00 74 23 95 03/01/21 08:00 65 19 91 Pulse Ox 03/01/21 18:00 03/01/21 17:00 97 03/01/21 16:00 03/01/21 14:33 03/01/21 14:00 03/01/21 12:14 03/01/21 12:00 03/01/21 10:00 03/01/21 08:00 Laboratory Results Short CBC 03/01/21 Range/Units 04:56 WBC 7.48 (4.8-10.8) K/uL Hgb 12.3 (12.0-16.0) g/dL Hct 37.1 (37-47) % Plt Count 315 (130-400) K/uL [facility] 03/01/21 04:56 Sodium 133 L Potassium 4.3 D Chloride 103 Carbon Dioxide 23 BUN 20 H Creatinine 0.85 Glucose 115 H Calcium 8.7 Liver Function 03/01/21 Range/Units 04:56 Total Bilirubin 0.4 (0.2-1) mg/dl AST 50 H (15-37) U/L ALT 35 (12-78) Alkaline Phosphatase 63 (45-117) U/L Albumin 2.4 L (3.4-5.0) gm/dl Medications Administered Current Inpatient Medications Acetaminophen (Acetaminophen 325 Mg Tab) 650 mg PO Q4H PRN PRN Reason: Pain or Fever Stop: 03/30/21 16:30 Enoxaparin Sodium (Enoxaparin Inj 40 Mg/0.4 Ml Syr) 40 mg SQ Q24H [facility] Stop: 03/30/21 16:59 Last Admin: 03/01/21 18:54 Dose: 40 mg Documented by: Ergocalciferol (Ergocalciferol 50,000 Units 1250 Mcg Cap) 50,000 units PO Mo@0900 [facility] Stop: 03/31/21 08:59 Last Admin: 03/01/21 09:47 Dose: 50,000 units Documented by: Remdesivir 100 mg/ Sodium (Chloride) 250 mls @ 250 mls/hr IV Q24H [facility]; Protocol Stop: 03/04/21 12:59 Last Infusion: 03/01/21 15:01 Dose: Infused Documented by: Dexamethasone 6 mg/ Syringe 1.5 mls @ 1 mls/min IV Q24H [facility] Stop: 03/31/21 08:59 Last Admin: 03/01/21 09:47 Dose: 1 mls/min Documented by: Ondansetron HCl (Ondansetron Inj 2 Mg/Ml 2 Ml Vial) 4 mg IV Q6H PRN PRN Reason: Nausea Stop: 03/30/21 14:03 Last Admin: 03/01/21 13:00 Dose: 4 mg Documented by: Polyethylene Glycol (Polyethylene (Miralax) 17 Gm Pack) 17 gm PO DAILY PRN PRN Reason: Constipation Stop: 03/30/21 16:30 Sodium Chloride (Sodium Chloride 0.9% 10ml Flush) 30 ml IV Q24H [facility] Stop: 03/04/21 13:01 Last Admin: 03/01/21 15:01 Dose: 30 ml Documented by:
[2021-03-02 06:16] LABS: Hematocrit (blood only) 35.3 % (37-47); Hemoglobin 11.7 g/dL (12.0-16.0); Mean Corpuscular Hemoglobin 30.1 pg (25-34); Mean Corpuscular Hgb Conc 33.1 g/dL (32-36); Mean Corpuscular Volume 90.7 fL (80-100); Mean Platelet Volume 10.5 fL (7.4-10.4); Platelet Count 387 K/uL (130-400); RDW Coefficient of Variation 13.6 % (11.5-14.5); RDW Standard Deviation 45.6 fL (36.4-46.3); Red Blood Count 3.89 M/uL (4.2-5.4); White Blood Count 16.77 K/uL (4.8-10.8)
[2021-03-02 06:50] LABS: Albumin Level 2.3 gm/dl (3.4-5.0); BUN Creatinine Ratio 31.9 (10-20); Calcium 8.6 mg/dl (8.5-10.1); Est GFR (African American) 68.1 ml/min; Est GFR (Non-African American) 58.8 ml/min; Potassium 4.2 mmol/L (3.5-5.1)
[2021-03-02 06:53] LABS: Albumin Globulin Ratio 0.6 (0.9-2); Bilirubin,Total 0.5 mg/dl (0.2-1); Globulin 4.1 gm/dl (2.5-4.0); Total Protein 6.4 gm/dl (6.4-8.2)
[2021-03-02] MEDS: dexAMETHasone 6 MG in SYRINGE 0 ML IV SCH (09:56)
[2021-03-02] MEDS: REMDESIVIR 100 MG in SODIUM CHLORIDE 0.9% 230 ML IV SCH (12:54)
--- NOTE | 2021-03-02 14:06 | Hospitalist Progress Note ---
Date of Service March 02, 2021 Assessment & Plan (1) Pneumonia due to 2019 novel coronavirus: Plan: This is an 80yo F with no known medical problems who presents with cough, SOB and generalized weakness x 1 week and was found to have Covid pneumonia. hypoxia persists, currently 94% on 4LPM via NC WBC up to 16.77 likely a result of steroid use Chest CTA with multifocal groundglass opacities compatible with pneumonia. No evidence of pulmonary embolism cont remdesivir and dexamethasone. cont supplemental care with antitussives, antiemetics, etc (2) Hypoxia: Plan: 2/2 above. (3) DVT prophylaxis: Plan: Lovenox DNR confirmed Dispo-cont hospitalization pending resolution of hypoxia DO [facility] Hospitalist Admission and Anticipated Discharge Date Admission Date: February 28, 2021 Subjective 80 yo F with covid pneumonia still coughing remains 92% on 4LPM tolerating foods feeling better overall Review of Systems Review of Systems: All systems reviewed and negative except as indicated above. Physical Exam Physical Exam: CONSTITUTIONAL: WNWD, vitals as above, NAD EYES: normal conjunctivae, no scleral icterus ENT: external ear and nose normal, MMM NECK: trachea midline, no lymphadenopathy, normal thyroid RESPIRATORY: CTA throughout, no rales or wheezes, normal respiratory effort CARDIOVASCULAR: regular rate and rhythm, S1 and 2 heard without murmurs, gallops or rubs, no JVD, no peripheral edema GASTROINTESTINAL: normal bowel sounds, soft, nontender, ND, no guarding MUSCULOSKELETAL: strength 5/5 throughout, head is normocephalic and atraumatic SKIN: warm and dry NEUROLOGIC: CN 2-12 grossly intact, normal cognition, normal speech, no tremor, no gross focal deficits. PSYCHIATRIC: alert cooperative and oriented to person, place and time. Euthymic mood, makes good eye contact, language grossly intact, recent and remote memory grossly intact. Results & Data Results & Data ([facility]) Vital Signs (Past 12 Hours) Vital Signs Temp Pulse Pulse Resp BP BP Pulse Ox 03/02/21 13:44 36.7 C 76 16 132/103 H 92 03/02/21 07:48 18 93 03/02/21 07:38 36.5 C 74 18 150/76 H 91 03/02/21 06:00 68 17 146/70 H 92 03/02/21 05:00 60 20 143/65 H 96 03/02/21 04:05 92 03/02/21 04:00 60 12 137/65 97 03/02/21 03:00 73 16 133/67 91 Laboratory Results Short CBC 03/02/21 Range/Units 05:57 WBC 16.77 H (4.8-10.8) K/uL Hgb 11.7 L (12.0-16.0) g/dL Hct 35.3 L (37-47) % Plt Count 387 (130-400) K/uL BMP 03/02/21 05:57 Sodium 132 L Potassium 4.2 Chloride 103 Carbon Dioxide 22 BUN 29 H Creatinine 0.91 Glucose 113 H Calcium 8.6 Liver Function 03/02/21 Range/Units 05:57 Total Bilirubin 0.5 (0.2-1) mg/dl AST 33 (15-37) U/L ALT 30 (12-78) Alkaline Phosphatase 62 (45-117) U/L Albumin 2.3 L (3.4-5.0) gm/dl
[2021-03-02] MEDS: SODIUM CHLORIDE 0.9% 10ML FLUSH IV SCH (14:34)
[2021-03-02] MEDS: ENOXAPARIN INJ 40 MG/0.4 ML SYR SQ SCH (18:42)
[2021-03-03 07:27] LABS: Hematocrit (blood only) 37.1 % (37-47); Hemoglobin 12.3 g/dL (12.0-16.0); Mean Corpuscular Hemoglobin 30.4 pg (25-34); Mean Corpuscular Hgb Conc 33.2 g/dL (32-36); Mean Corpuscular Volume 91.8 fL (80-100); Mean Platelet Volume 10.3 fL (7.4-10.4); Platelet Count 414 K/uL (130-400); RDW Coefficient of Variation 13.8 % (11.5-14.5); RDW Standard Deviation 46.9 fL (36.4-46.3); Red Blood Count 4.04 M/uL (4.2-5.4); White Blood Count 17.35 K/uL (4.8-10.8)
[2021-03-03 07:57] LABS: BUN Creatinine Ratio 30.9 (10-20); C Reactive Protein 2.13 mg/dl (0-0.29); Calcium 8.4 mg/dl (8.5-10.1); Creatinine Clr Calc Pharmacy 43.5 ml/min; Est GFR (African American) 70.9 ml/min; Est GFR (Non-African American) 61.2 ml/min; Potassium 4.2 mmol/L (3.5-5.1)
[2021-03-03] MEDS: dexAMETHasone 6 MG in SYRINGE 0 ML IV SCH (08:54)
[2021-03-03] MEDS: REMDESIVIR 100 MG in SODIUM CHLORIDE 0.9% 230 ML IV SCH (12:52)
[2021-03-03] MEDS: SODIUM CHLORIDE 0.9% 10ML FLUSH IV SCH (13:55)
[2021-03-03] MEDS: ENOXAPARIN INJ 40 MG/0.4 ML SYR SQ SCH (16:44)
--- NOTE | 2021-03-03 19:19 | Hospitalist Progress Note ---
Date of Service March 03, 2021 Assessment & Plan (1) Hypoxia: (2) Pneumonia due to 2019 novel coronavirus: Plan: This is an 80yo F with no known medical problems who presents with cough, SOB and generalized weakness x 1 week and was found to have Covid pneumonia. (1) Pneumonia due to 2019 novel coronavirus: hypoxia persists, currently on 7 LPM via Oxymask WBC elevated likely a result of steroid use, procal negative Chest CTA with multifocal groundglass opacities compatible with pneumonia. No evidence of pulmonary embolism cont remdesivir 02/28 and dexamethasone 02/28 cont supplemental care with antitussives, antiemetics, proning, IS/flutter valve (2) Hypoxia: 2/2 above. Will need 2 Step prior to discharge. (3) DVT prophylaxis: Lovenox DNR confirmed Dispo-cont hospitalization pending resolution of hypoxia. Admission and Anticipated Discharge Date Admission Date: February 28, 2021 Subjective Patient was lying in bed, on 7 L oxygen by oxygen mask, NAD, no new acute events overnight. Patient reports cough getting better and diarrhea has resolved. Patient has not had bowel movement in few days. Patient denies any fever/headache/chills/chest pain/palpitation/increased shortness of breath/other review of symptoms. Physical Exam Physical Exam: GENERAL: Alert and oriented x3. NAD, on 7L via Oxymask HEENT: No pallor, no icterus. Pupils equal, round and reactive to light. Oral mucosa moist. NECK: No JVD, no neck masses. HEART: S1 and S2 heard. Regular rate and rhythm. No murmur, no gallop. RESPIRATORY SYSTEM: Normal AP diameter. No accessory muscle use. No wheezing, no crackles. b/l decreased breath sounds. ABDOMEN: Soft, bowel sounds present, nontender, no distention. CENTRAL NERVOUS SYSTEM: No facial droop. Speech is clear. Obeys simple commands. Moves extremities. EXTREMITIES: No edema, no erythema seen. Results & Data Results & Data ([facility]) Vital Signs (Past 12 Hours) Vital Signs Temp Pulse Pulse Pulse Resp BP BP 03/03/21 18:56 36.6 C 71 22 148/71 H 03/03/21 17:47 03/03/21 16:20 62 03/03/21 14:30 36.5 C 63 24 145/73 H 03/03/21 09:48 03/03/21 09:30 54 L 03/03/21 09:00 03/03/21 07:26 36.3 C L 81 22 133/69 Pulse Ox 03/03/21 18:56 90 03/03/21 17:47 99 03/03/21 16:20 03/03/21 14:30 94 03/03/21 09:48 92 03/03/21 09:30 03/03/21 09:00 92 03/03/21 07:26 88 L
[2021-03-04 06:26] LABS: Hematocrit (blood only) 34.8 % (37-47); Hemoglobin 11.5 g/dL (12.0-16.0); Mean Corpuscular Hemoglobin 30.3 pg (25-34); Mean Corpuscular Volume 91.8 fL (80-100); Mean Platelet Volume 10.2 fL (7.4-10.4); Platelet Count 402 K/uL (130-400); RDW Coefficient of Variation 13.7 % (11.5-14.5); RDW Standard Deviation 45.9 fL (36.4-46.3); Red Blood Count 3.79 M/uL (4.2-5.4); White Blood Count 18.27 K/uL (4.8-10.8)
[2021-03-04 06:56] LABS: BUN Creatinine Ratio 27.5 (10-20); Calcium 8.4 mg/dl (8.5-10.1); Creatinine Clr Calc Pharmacy 51.7 ml/min; Est GFR (Non-African American) 74.2 ml/min; Potassium 4.1 mmol/L (3.5-5.1)
[2021-03-04] MEDS: dexAMETHasone 6 MG in SYRINGE 0 ML IV SCH (07:36)
[2021-03-04] MEDS: REMDESIVIR 100 MG in SODIUM CHLORIDE 0.9% 230 ML IV SCH (12:47)
[2021-03-04] MEDS: SODIUM CHLORIDE 0.9% 10ML FLUSH IV SCH (14:16)
[2021-03-04] MEDS: ENOXAPARIN INJ 40 MG/0.4 ML SYR SQ SCH (17:20)
--- NOTE | 2021-03-04 19:23 | Hospitalist Progress Note ---
Date of Service March 04, 2021 Assessment & Plan (1) Hypoxia: (2) Pneumonia due to 2019 novel coronavirus: Plan: This is an 80yo F with no known medical problems who presents with cough, SOB and generalized weakness x 1 week and was found to have Covid pneumonia. (1) Pneumonia due to 2019 novel coronavirus: hypoxia persists, currently on 6 LPM via Oxymask WBC elevated likely a result of steroid use, procal negative Chest CTA with multifocal groundglass opacities compatible with pneumonia. No evidence of pulmonary embolism cont remdesivir 02/28 and dexamethasone 02/28 cont supplemental care with antitussives, antiemetics, proning, IS/flutter valve (2) Hypoxia: 2/2 above. Will need 2 Step prior to discharge. (3) DVT prophylaxis: Lovenox DNR confirmed Dispo-cont hospitalization pending resolution of hypoxia. Admission and Anticipated Discharge Date Admission Date: February 28, 2021 Subjective Patient was lying in bed, on 6 L oxygen by oxygen mask, NAD, no new acute events overnight. Patient reports cough getting better and diarrhea has resolved. Patient has not had bowel movement in few days. will give bowel regimen. Patient reports decreased appetite but minimally improving. Patient denies any fever/headache/chills/chest pain/palpitation/increased shortness of breath/other review of symptoms. Physical Exam Physical Exam: GENERAL: Alert and oriented x3. NAD, on 6L via Oxymask HEENT: No pallor, no icterus. Pupils equal, round and reactive to light. Oral mucosa moist. NECK: No JVD, no neck masses. HEART: S1 and S2 heard. Regular rate and rhythm. No murmur, no gallop. RESPIRATORY SYSTEM: Normal AP diameter. No accessory muscle use. No wheezing, no crackles. b/l decreased breath sounds. ABDOMEN: Soft, bowel sounds present, nontender, no distention. CENTRAL NERVOUS SYSTEM: No facial droop. Speech is clear. Obeys simple commands. Moves extremities. EXTREMITIES: No edema, no erythema seen. Results & Data Results & Data ([facility]) Vital Signs (Past 12 Hours) Vital Signs Temp Pulse Pulse Resp BP BP Pulse Ox 03/04/21 15:33 36.3 C L 78 20 153/73 H 90 03/04/21 15:01 67 03/04/21 11:36 36.5 C 70 20 153/74 H 92 03/04/21 09:05 94 03/04/21 08:00 59 L 03/04/21 07:35 36.6 C 74 22 138/70 90
[2021-03-04] MEDS: ONDANSETRON INJ 2 MG/ML 2 ML VIAL IV PRN (19:24)
[2021-03-05 07:41] LABS: BUN Creatinine Ratio 23.6 (10-20); Calcium 8.7 mg/dl (8.5-10.1); Creatinine Clr Calc Pharmacy 48.7 ml/min; Est GFR (African American) 84.7 ml/min; Est GFR (Non-African American) 73.1 ml/min; Potassium 4.1 mmol/L (3.5-5.1)
[2021-03-05] MEDS: dexAMETHasone 6 MG in SYRINGE 0 ML IV SCH (08:10)
[2021-03-05] MEDS: ENOXAPARIN INJ 40 MG/0.4 ML SYR SQ SCH (16:08)
--- NOTE | 2021-03-05 16:47 | Hospitalist Progress Note ---
Date of Service March 05, 2021 Assessment & Plan (1) Hypoxia: (2) Pneumonia due to 2019 novel coronavirus: Plan: This is an 80yo F with no known medical problems who presents with cough, SOB and generalized weakness x 1 week and was found to have Covid pneumonia. (1) Pneumonia due to 2019 novel coronavirus: hypoxia persists, currently on 6 LPM via Oxymask WBC elevated likely a result of steroid use, procal negative Chest CTA with multifocal groundglass opacities compatible with pneumonia. No evidence of pulmonary embolism s/p remdesivir 02/28-03/04, c/w dexamethasone 02/28 cont supplemental care with antitussives, antiemetics, proning, IS/flutter valve Communicated with RN for nasal cannula during the day so that patient is able to do incentive spirometer and flutter valve as directed, can use oxygen mask during the night when she is sleeping. Communicated with RN for ambulating the patient every few hours using higher oxygen if appropriate. PT/OT consulted. (2) Hypoxia: 2/2 above. Will need 2 Step prior to discharge. (3) DVT prophylaxis: Lovenox DNR confirmed Dispo-cont hospitalization pending resolution of hypoxia. PT/OT consulted. Admission and Anticipated Discharge Date Admission Date: February 28, 2021 Subjective Patient was lying in bed, on 6 L oxygen by oxygen mask, NAD, no new acute events overnight. Patient is coughing at bedside, reports cough getting better. Patient and RN reports patient eating okay. Patient denies any fever/headache/chills/chest pain/palpitation/increased shortness of breath/other review of symptoms. Per RN, patient desaturates with moving. Communicated with RN for ambulating patient every few hours with increasing oxygen as appropriate. Communicated with RN for nasal cannula during the day so that she can do incentive spirometer/flutter valve every hour as directed. Can use oxymask during the night when she is sleeping. Physical Exam Physical Exam: GENERAL: Alert and oriented x3. NAD, on 6L via Oxymask HEENT: No pallor, no icterus. Pupils equal, round and reactive to light. Oral mucosa moist. NECK: No JVD, no neck masses. HEART: S1 and S2 heard. Regular rate and rhythm. No murmur, no gallop. RESPIRATORY SYSTEM: Normal AP diameter. No accessory muscle use. No wheezing, no crackles. b/l decreased breath sounds. ABDOMEN: Soft, bowel sounds present, nontender, no distention. CENTRAL NERVOUS SYSTEM: No facial droop. Speech is clear. Obeys simple commands. Moves extremities. EXTREMITIES: No edema, no erythema seen. Results & Data Results & Data ([facility]) Vital Signs (Past 12 Hours) Vital Signs Temp Pulse Resp BP BP Pulse Ox 03/05/21 15:51 36.5 C 67 20 158/67 H 97 03/05/21 10:53 36.7 C 77 22 118/66 90 03/05/21 07:53 36.6 C 72 19 150/69 H 93
[2021-03-06] MEDS: dexAMETHasone 6 MG in SYRINGE 0 ML IV SCH (07:59)
[2021-03-06] MEDS: ENOXAPARIN INJ 40 MG/0.4 ML SYR SQ SCH (16:50)
[2021-03-06] MEDS ORDERED: POLYETHYLENE (MIRALAX) 17 GM PACK PO ONE (18:19)
--- NOTE | 2021-03-06 18:19 | Hospitalist Progress Note ---
Date of Service March 06, 2021 Assessment & Plan (1) Hypoxia: (2) Pneumonia due to 2019 novel coronavirus: Plan: This is an 80yo F with no known medical problems who presents with cough, SOB and generalized weakness x 1 week and was found to have Covid pneumonia. (1) Pneumonia due to 2019 novel coronavirus: hypoxia persists, currently on 6 LPM via [place] WBC elevated likely a result of steroid use, procal negative Chest CTA with multifocal groundglass opacities compatible with pneumonia. No evidence of pulmonary embolism s/p remdesivir 02/28-03/04, c/w dexamethasone 02/28 cont supplemental care with antitussives, antiemetics, proning, IS/flutter valve Nasal cannula during the day so that patient is able to do incentive spirometer and flutter valve as directed, can use oxygen mask during the night when she is sleeping. Ambulate the patient every few hours using higher oxygen if appropriate. PT/OT consulted. (2) Hypoxia: 2/2 above. Will need 2 Step prior to discharge. (3) DVT prophylaxis: Lovenox DNR confirmed Bowel regimen/no bm since monday per pt. Dispo-cont hospitalization pending resolution of hypoxia. PT/OT consulted. Admission and Anticipated Discharge Date Admission Date: February 28, 2021 Subjective Patient was sitting up in chair eating her lunch, on 6 L oxygen by nasal cannula, NAD, reports eating better lately. No BM since Monday. Per RN, though not able to wean down her oxygen but reports patient doing better and currently doing her incentive spirometry. She does desaturates with movement per RN. Patient denies any fever/headache/chills/chest pain/palpitation/increased shortness of breath/other review of symptoms. oxygen as appropriate. Nasal cannula during the day so that she can do incentive spirometer/flutter valve every hour as directed. Can use oxymask during the night when she is sleeping. Physical Exam Physical Exam: GENERAL: Alert and oriented x3. NAD, on 6L via NC HEENT: No pallor, no icterus. Pupils equal, round and reactive to light. Oral mucosa moist. NECK: No JVD, no neck masses. HEART: S1 and S2 heard. Regular rate and rhythm. No murmur, no gallop. RESPIRATORY SYSTEM: Normal AP diameter. No accessory muscle use. No wheezing, no crackles. b/l decreased breath sounds. ABDOMEN: Soft, bowel sounds present, nontender, no distention. CENTRAL NERVOUS SYSTEM: No facial droop. Speech is clear. Obeys simple commands. Moves extremities. EXTREMITIES: No edema, no erythema seen. Results & Data Results & Data ([facility]) Vital Signs (Past 12 Hours) Vital Signs Temp Pulse Resp BP BP Pulse Ox 03/06/21 16:49 36.4 C L 68 20 144/68 H 92 03/06/21 14:03 90 03/06/21 12:32 36.4 C L 70 20 94/58 L 90 03/06/21 07:59 36.4 C L 89 18 134/68 93 03/06/21 07:55 87 L
[2021-03-06] MEDS: DOCUSATE SODIUM 100 MG CAP PO SCH (20:48)
[2021-03-07 07:53] LABS: BUN Creatinine Ratio 30.2 (10-20); Calcium 8.8 mg/dl (8.5-10.1); Creatinine Clr Calc Pharmacy 49.1 ml/min; Est GFR (African American) 84.7 ml/min; Est GFR (Non-African American) 73.1 ml/min; Potassium 4.7 mmol/L (3.5-5.1)
[2021-03-07] MEDS: DOCUSATE SODIUM 100 MG CAP PO SCH ×2 (09:52→20:12)
[2021-03-07] MEDS: dexAMETHasone 6 MG in SYRINGE 0 ML IV SCH (09:52)
--- NOTE | 2021-03-07 18:39 | Hospitalist Progress Note ---
Date of Service March 07, 2021 Assessment & Plan (1) Hypoxia: (2) Pneumonia due to 2019 novel coronavirus: Plan: This is an 80yo F with no known medical problems who presents with cough, SOB and generalized weakness x 1 week and was found to have Covid pneumonia. (1) Pneumonia due to 2019 novel coronavirus: hypoxia persists, currently on 6 LPM via [place] WBC elevated likely a result of steroid use, procal negative Chest CTA with multifocal groundglass opacities compatible with pneumonia. No evidence of pulmonary embolism s/p remdesivir 02/28-03/04, c/w dexamethasone 02/28 cont supplemental care with antitussives, antiemetics, proning, IS/flutter valve Nasal cannula during the day so that patient is able to do incentive spirometer and flutter valve as directed, can use oxygen mask during the night when she is sleeping. Ambulate the patient every few hours using higher oxygen if appropriate. PT/OT consulted. (2) Hypoxia: 2/2 above. Will need 2 Step prior to discharge. (3) DVT prophylaxis: Lovenox DNR confirmed Bowel regimen/no bm since monday per pt. Dispo-cont hospitalization pending resolution of hypoxia. PT/OT Admission and Anticipated Discharge Date Admission Date: February 28, 2021 Subjective Patient was sitting up in chair , on 6 L oxygen by nasal cannula, NAD, reports eating better. No BM. Per RN, though not able to wean down her oxygen but reports patient doing better and currently doing her incentive spirometry more consistently. She does desaturates with movement which has gotten better per RN. Patient denies any fever/headache/chills/chest pain/palpitation/increased shortness of breath/other review of symptoms. Nasal cannula during the day so that she can do incentive spirometer/flutter valve every hour as directed. Can use oxymask during the night when she is sleeping. Physical Exam Physical Exam: GENERAL: Alert and oriented x3. NAD, on 6L via NC HEENT: No pallor, no icterus. Pupils equal, round and reactive to light. Oral mucosa moist. NECK: No JVD, no neck masses. HEART: S1 and S2 heard. Regular rate and rhythm. No murmur, no gallop. RESPIRATORY SYSTEM: Normal AP diameter. No accessory muscle use. No wheezing, RLL dry crackles. B/l decreased breath sounds. ABDOMEN: Soft, bowel sounds present, nontender, no distention. CENTRAL NERVOUS SYSTEM: No facial droop. Speech is clear. Obeys simple commands. Moves extremities. EXTREMITIES: No edema, no erythema seen. Results & Data Results & Data ([facility]) Vital Signs (Past 12 Hours) Vital Signs Temp Pulse Resp BP Pulse Ox 03/07/21 16:55 36.3 C L 66 22 109/59 L 92 03/07/21 12:33 36.4 C L 72 18 94/52 L 93 03/07/21 07:57 36.5 C 75 20 132/69 94
[2021-03-07] MEDS: ENOXAPARIN INJ 40 MG/0.4 ML SYR SQ SCH (19:20)
[2021-03-08] MEDS: DOCUSATE SODIUM 100 MG CAP PO SCH ×2 (07:26→20:47)
[2021-03-08] MEDS: ERGOCALCIFEROL 50,000 UNITS 1250 MCG CAP PO SCH (07:43)
[2021-03-08] MEDS: dexAMETHasone 6 MG in SYRINGE 0 ML IV SCH (07:43)
[2021-03-08] MEDS: ENOXAPARIN INJ 40 MG/0.4 ML SYR SQ SCH (16:54)
--- NOTE | 2021-03-08 20:14 | Hospitalist Progress Note ---
Date of Service March 08, 2021 Assessment & Plan (1) Hypoxia: (2) Pneumonia due to 2019 novel coronavirus: Plan: This is an 80yo F with no known medical problems who presents with cough, SOB and generalized weakness x 1 week and was found to have Covid pneumonia. (1) Pneumonia due to 2019 novel coronavirus: hypoxia persists, currently on 6 LPM via [place] WBC elevated likely a result of steroid use, procal negative Chest CTA with multifocal groundglass opacities compatible with pneumonia. No evidence of pulmonary embolism s/p remdesivir 02/28-03/04, c/w dexamethasone 02/28 cont supplemental care with antitussives, antiemetics, proning, IS/flutter valve Nasal cannula during the day so that patient is able to do incentive spirometer and flutter valve as directed, can use oxygen mask during the night when she is sleeping. Ambulate the patient every few hours using higher oxygen if appropriate. PT/OT consulted. Patient seems to be improving albeit very slowly. (2) Hypoxia: 2/2 above. Will need 2 Step prior to discharge. (3) DVT prophylaxis: Lovenox DNR confirmed Bowel regimen/no bm since monday per pt. Dispo-cont hospitalization pending resolution of hypoxia. PT/OT Admission and Anticipated Discharge Date Admission Date: February 28, 2021 Subjective Patient was sitting up in chair , on 6 L oxygen by nasal cannula, NAD, reports eating better. Patient doing better and currently doing her incentive spir ometry more consistently. She does desaturates with movement which has gotten better per RN. Patient denies any fever/headache/chills/chest pain/palpitation/increased shortness of breath/other review of symptoms. Nasal cannula during the day so that she can do incentive spirometer/flutter valve every hour as directed. Can use oxymask during the night when she is sleeping. Physical Exam Physical Exam: GENERAL: Alert and oriented x3. NAD, on 6L via [place] HEENT: No pallor, no icterus. Pupils equal, round and reactive to light. Oral mucosa moist. NECK: No JVD, no neck masses. HEART: S1 and S2 heard. Regular rate and rhythm. No murmur, no gallop. RESPIRATORY SYSTEM: Normal AP diameter. No accessory muscle use. No wheezing, RLL dry crackles. B/l decreased breath sounds. ABDOMEN: Soft, bowel sounds present, nontender, no distention. CENTRAL NERVOUS SYSTEM: No facial droop. Speech is clear. Obeys simple commands. Moves extremities. EXTREMITIES: No edema, no erythema seen. Results & Data Results & Data ([facility]) Vital Signs (Past 12 Hours) Vital Signs Temp Pulse Resp BP BP Pulse Ox 03/08/21 15:07 36.8 C 63 22 143/69 H 95 03/08/21 11:53 36.4 C L 62 21 125/66 95
[2021-03-09] MEDS: DOCUSATE SODIUM 100 MG CAP PO SCH ×2 (07:46→21:20)
[2021-03-09] MEDS: dexAMETHasone 6 MG in SYRINGE 0 ML IV SCH (07:46)
--- NOTE | 2021-03-09 15:06 | Hospitalist Progress Note ---
Date of Service March 09, 2021 Assessment & Plan (1) Hypoxia: (2) Pneumonia due to 2019 novel coronavirus: Plan: This is an 80yo F with no known medical problems who presents with cough, SOB and generalized weakness x 1 week and was found to have Covid pneumonia. (1) Pneumonia due to 2019 novel coronavirus: hypoxia persists, currently on 6 LPM via [place] WBC elevated likely a result of steroid use, procal negative Chest CTA with multifocal groundglass opacities compatible with pneumonia. No evidence of pulmonary embolism s/p remdesivir 02/28-03/04, c/w dexamethasone 02/28 cont supplemental care with antitussives, antiemetics, proning, IS/flutter valve Nasal cannula during the day so that patient is able to do incentive spirometer and flutter valve as directed, can use oxygen mask during the night when she is sleeping. Ambulate the patient every few hours using higher oxygen if appropriate. PT/OT consulted. Patient seems to be improving albeit very slowly. Per RN, she is tolerating movement more now than before without much desatting. (2) Hypoxia: 2/2 above. Will need 2 Step prior to discharge. (3) DVT prophylaxis: Lovenox DNR confirmed Bowel regimen/no bm since monday per pt. Dispo-patient improving, if stable in 3 to 4 L oxygen for 24 hours, expect discharge in next 1 to 2 days. Admission and Anticipated Discharge Date Admission Date: February 28, 2021 Subjective LikePatient was lying in bed , on 6 L oxygen by nasal cannula, NAD, reports eating better. Patient doing better and currently doing her incentive spirometry more consistently. Per RN, patient is not desaturating as much with movement but she still feels she is short of breath and tired just after movement but catches up quickly when sat down. Patient denies any fever/headache/chills/chest pain/palpitation/increased shortness of breath/other review of symptoms. Nasal cannula during the day so that she can do incentive spirometer/flutter valve every hour as directed. Can use oxymask during the night when she is sleeping. Physical Exam Physical Exam: GENERAL: Alert and oriented x3. NAD, on 6L via [place] HEENT: No pallor, no icterus. Pupils equal, round and reactive to light. Oral mucosa moist. NECK: No JVD, no neck masses. HEART: S1 and S2 heard. Regular rate and rhythm. No murmur, no gallop. RESPIRATORY SYSTEM: Normal AP diameter. No accessory muscle use. No wheezing, RLL dry crackles. B/l decreased breath sounds. ABDOMEN: Soft, bowel sounds present, nontender, no distention. CENTRAL NERVOUS SYSTEM: No facial droop. Speech is clear. Obeys simple commands. Moves extremities. EXTREMITIES: No edema, no erythema seen. Results & Data Results & Data ([facility]) Vital Signs (Past 12 Hours) Vital Signs Temp Pulse Resp BP BP Pulse Ox 03/09/21 14:19 97 03/09/21 11:48 36.8 C 70 21 136/61 95 03/09/21 07:58 36.9 C 80 20 111/65 91 03/09/21 04:25 36.4 C L 60 18 118/66 99
[2021-03-09] MEDS: ENOXAPARIN INJ 40 MG/0.4 ML SYR SQ SCH (16:55)
[2021-03-10 07:38] LABS: BUN Creatinine Ratio 36.9 (10-20); Calcium 8.9 mg/dl (8.5-10.1); Creatinine Clr Calc Pharmacy 50.9 ml/min; Est GFR (African American) 88.9 ml/min; Est GFR (Non-African American) 76.7 ml/min; Potassium 4.4 mmol/L (3.5-5.1)
[2021-03-10] MEDS: dexAMETHasone 6 MG in SYRINGE 0 ML IV SCH (07:52)
[2021-03-10] MEDS: DOCUSATE SODIUM 100 MG CAP PO SCH ×2 (07:52→21:05)
--- NOTE | 2021-03-10 15:51 | Hospitalist Progress Note ---
Date of Service March 10, 2021 Assessment & Plan (1) Hypoxia: (2) Pneumonia due to 2019 novel coronavirus: Plan: per Dr. Babcock's notes with addendum: This is an 80yo F with no known medical problems who presents with cough, SOB and generalized weakness x 1 week and was found to have Covid pneumonia. (1) Pneumonia due to 2019 novel coronavirus: hypoxia persists, currently on 6 LPM via [place] WBC elevated likely a result of steroid use, procal negative Chest CTA with multifocal groundglass opacities compatible with pneumonia. No evidence of pulmonary embolism s/p remdesivir 02/28-03/04, c/w dexamethasone 02/28 cont supplemental care with antitussives, antiemetics, proning, IS/flutter valve Nasal cannula during the day so that patient is able to do incentive spirometer and flutter valve as directed, can use oxygen mask during the night when she is sleeping. Ambulate the patient every few hours using higher oxygen if appropriate. PT/OT consulted. Patient seems to be improving albeit very slowly. Per RN, she is tolerating m ovement more now than before without much desatting. 03/10 now on 4 L nasal cannula last day of Dexamethasone completed Remdesivir 2 step tomorrow, possible d/c tomorrow (2) Hypoxia: 2/2 above. Will need 2 Step prior to discharge. (3) DVT prophylaxis: Lovenox DNR confirmed Bowel regimen/no bm since monday per pt. Dispo-possible d/c home tomorrow, with home health services Admission and Anticipated Discharge Date Admission Date: February 28, 2021 Subjective FF UP FOR COVID PNEUMONIA, HYPOXIC RESPIRATORY FAILURE, ETC seen resting in bed, comfortable on 4 L o2 via NC states she feels improved overall no active dyspnea has minimal dry cough no chest pain, palpitations, nausea/vomiting, leg pain appetite gradually improving no other symptoms Review of Systems Review of Systems: all noted and negative except for above Physical Exam Physical Exam: General- oriented x 3, not in distress, speaks in sentences with no effort or accessory muscle use Eyes- anicteric Neck- no JVD Lungs- mild rales at the bases no wheezing Heart- normal rate, regular rhythm; no murmurs Abdomen- normal bowel sounds, nondistended, soft, nontender Extremities- no pretibial edema, no calf tenderness Neuro- alert, oriented x 3; no gross focal neurologic deficits Skin- warm & dry Results & Data Results & Data ([facility]) Vital Signs (Past 12 Hours) Vital Signs Temp Pulse Pulse Resp BP BP Pulse Ox 03/10/21 11:47 36.5 C 69 22 112/59 L 93 03/10/21 08:00 84 03/10/21 07:56 52 L 03/10/21 07:47 36.4 C L 65 20 125/62 94 03/10/21 04:12 36.7 C 66 16 124/63 96 all noted and reviewed including below
[2021-03-10] MEDS: ENOXAPARIN INJ 40 MG/0.4 ML SYR SQ SCH (17:16)
[2021-03-11] MEDS: dexAMETHasone 6 MG in SYRINGE 0 ML IV SCH (08:22)
[2021-03-11] MEDS: DOCUSATE SODIUM 100 MG CAP PO SCH (08:22)
--- NOTE | 2021-03-11 12:33 | Hospitalist Progress Note ---
Date of Service March 11, 2021 Assessment & Plan (1) Hypoxia: (2) Pneumonia due to 2019 novel coronavirus: Plan: per Dr. Babcock's notes with addendum: This is an 80yo F with no known medical problems who presents with cough, SOB and generalized weakness x 1 week and was found to have Covid pneumonia. (1) Pneumonia due to 2019 novel coronavirus: hypoxia persists, currently on 6 LPM via [place] WBC elevated likely a result of steroid use, procal negative Chest CTA with multifocal groundglass opacities compatible with pneumonia. No evidence of pulmonary embolism s/p remdesivir 02/28-03/04, c/w dexamethasone 02/28 cont supplemental care with antitussives, antiemetics, proning, IS/flutter valve Nasal cannula during the day so that patient is able to do incentive spirometer and flutter valve as directed, can use oxygen mask during the night when she is sleeping. Ambulate the patient every few hours using higher oxygen if appropriate. PT/OT consulted. Patient seems to be improving albeit very slowly. Per RN, she is tolerating m ovement more now than before without much desatting. 03/10 now on 4 L nasal cannula last day of Dexamethasone completed Remdesivir 2 step tomorrow, possible d/c tomorrow 03/11 remains stable 2 step exercise test pending completed Decadron and Remdesivir d/c home today isolate for another 4 days, or until cough resolved precautions discussed (2) Hypoxia: 2/2 above. 2 Step exercise test prior to discharge. (3) DVT prophylaxis: Lovenox DNR confirmed Bowel regimen/no bm since monday per pt. Dispo-d/c home ff up with PCP in 1 week plan of care discussed with patient in detail all questions answered she is understanding, agreeable, comfortable with the plan of care Admission and Anticipated Discharge Date Admission Date: February 28, 2021 Subjective ff up for covid 19 pna, hypoxic respiratory failure, etc seen sitting up in bed, comfortable on 2L nasal cannula states she feels better overall denies active dyspnea, chest pain, palpitaitons, dizziness appetite improving no leg pain no other symptoms states she is ready and would like to go home today Review of Systems Review of Systems: all noted and negative except for above Physical Exam Physical Exam: General- oriented x 3, not in distress, speaks in sentences with no effort or accessory muscle use Eyes- anicteric Neck- no JVD Lungs- clear breath sounds bilaterally, no rales/wheezes Heart- normal rate, regular rhythm; no murmurs Abdomen- normal bowel sounds, nondistended, soft, nontender Extremities- no pretibial edema, no calf tenderness Neuro- alert, oriented x 3; no gross focal neurologic deficits Skin- warm & dry Results & Data Results & Data ([facility]) Vital Signs (Past 12 Hours) Vital Signs Temp Pulse Pulse Pulse Pulse Pulse Pulse 03/11/21 12:24 71 72 71 75 03/11/21 11:04 36.8 C 60 03/11/21 08:00 37.1 C 82 03/11/21 07:25 49 L 03/11/21 04:00 36.5 C 45 L Pulse Pulse Resp Resp Resp Resp Resp 03/11/21 12:24 70 70 19 19 21 21 03/11/21 11:04 20 03/11/21 08:00 16 03/11/21 07:25 03/11/21 04:00 18 Resp Resp BP Pulse Ox Pulse Ox Pulse Ox Pulse Ox 03/11/21 12:24 20 19 87 L 90 92 03/11/21 11:04 105/61 97 03/11/21 08:00 127/72 97 03/11/21 07:25 03/11/21 04:00 132/76 97 Pulse Ox Pulse Ox Pulse Ox 03/11/21 12:24 87 L 91 86 L 03/11/21 11:04 03/11/21 08:00 03/11/21 07:25 03/11/21 04:00 all noted and reviewed including below
--- NOTE | 2021-03-11 12:51 | Discharge Summary ---
Date of Service March 11, 2021 Admission HPI Per Admitting Provider This is an 80yo F with no known medical problems who presents with cough, SOB and generalized weakness x 1 week. Had family in from [place] over who tested positive for covid-19 after leaving. Patient developed symptoms approximately 1 week ago and has felt progressively worse. Endorses nausea, diarrhea, generalized weakness, fatigue, chills, cough and SOB. Diarrhea has improved over past few days but cough and SOB have worsened, prompting her to present to ED. Does not own thermometer so unsure if she has been having a fever at home. Lives alone and receives primary care from Dr. Aguirre in [place]. Patient was not vaccinated against COVID-19. Denies any known PMH of diabetes, heart disease or stroke. Only home medications are vitamin D and magnesium. Still does not have much of an appetite. Denies headache, lightheadedness, CP, palpitations, wheezing, hemoptysis, nausea, abdominal pain, dysuria or constipation. Admission Exam (Per Admitting) Constitutional On physical exam, General: Elderly woman in no distress Eyes: PERRL, conjunctivae normal, not pale, anicteric sclerae, EOM intact bilaterally ENMT: External ear and nose normal, oropharynx normal Respiratory: Normal respiratory effort, no respiratory distress, on nasal cannula, scattered rales Cardiovascular: Pulse is RRR. S1 S2 no pedal edema Gastrointestinal (Abdomen): Abdomen is not distended, soft, non-tender to palpation, no guarding, no palpable hepatosplenomegaly, normal bowel sounds Musculoskeletal: No cyanosis or clubbing, all extremities motor strength 5/5 Neurologic: Alert and oriented x 3, No focal weakness, sensation grossly intact Psychiatric: Alert and oriented x 3, euthymic affect, no depressed affect Discharge Data Consultations 02/28/21 13:05 ED Decision to Admit Stat Hospital Course (1) Hypoxia: (2) Pneumonia due to 2019 novel coronavirus: per Dr. Babcock's notes with addendum: This is an 80yo F with no known medical problems who presents with cough, SOB and generalized weakness x 1 week and was found to have Covid pneumonia. (1) Pneumonia due to 2019 novel coronavirus: hypoxia persists, currently on 6 LPM via [place] WBC elevated likely a result of steroid use, procal negative Chest CTA with multifocal groundglass opacities compatible with pneumonia. No evidence of pulmonary embolism s/p remdesivir 02/28-03/04, c/w dexamethasone 02/28 cont supplemental care with antitussives, antiemetics, proning, IS/flutter valve Nasal cannula during the day so that patient is able to do incentive spirometer and flutter valve as directed, can use oxygen mask during the night when she is sleeping. Ambulate the patient every few hours using higher oxygen if appropriate. PT/OT consulted. Patient seems to be improving albeit very slowly. Per RN, she is tolerating movement more now than before without much desatting. 03/10 now on 4 L nasal cannula last day of Dexamethasone completed Remdesivir 2 step tomorrow, possible d/c tomorrow 03/11 remains stable 2 step exercise test pending completed Decadron and Remdesivir d/c home today isolate for another 4 days, or until cough resolved precautions discussed (2) Hypoxia: 2/2 above. 2 Step exercise test prior to discharge. (3) DVT prophylaxis: Lovenox DNR confirmed Bowel regimen/no bm since monday per pt. Dispo-d/c home ff up with PCP in 1 week plan of care discussed with patient in detail all questions answered she is understanding, agreeable, comfortable with the plan of care
[2021-03-11] MEDS: ENOXAPARIN INJ 40 MG/0.4 ML SYR SQ SCH (17:40)
== END 2021-03-11 19:20 | disposition home or self-care (01) | DRG 177 ==
LOC: ED 10:29 → SUATTDRO 13:27 → EDINP 13:27 → 2S 03-03 05:38